=== PATIENT | male | born 1950 | race Caucasian/White ===

== ENCOUNTER → 2016-09-15 | Outpatient (REF) ==
[~2016-09-15] MED LIST: ASPIRIN 81M81 MG/TA2 PO; BENICAR 20MG TA20 MG PO; ZOCOR 10MG10 MG PO
[2016-09-15 12:03] LABS: THYROID STIMULATING HORMONE 3.67 uIU/mL (0.465-4.680)
[2016-09-15 12:45] LABS: PSA-TOTAL 1.82 ng/mL (0-4)
== END ==
LOC: ZLAB.WCH 11:00
PROVIDERS: Medical Genetics Clinical Genetics (M.D.)
DX: Z01.89 Encounter for other specified special examinations (principal)
CPT/HCPCS: G0103